=== PATIENT | female | born 1940 | race Two or more races ===

== ENCOUNTER 2022-05-13 15:51 | Inpatient (IN) | payer OTHER ==
[~2022-05-13] VITALS: Ht 167.6 cm; Wt 61.2 kg
[~2022-05-13 15:51] MED LIST: ALPRAZOLAM0.25 MG; ATORVASTATIN CA10 MG PO; ATORVASTATIN CA20 MG; B-121000 MC1; FAMOTIDINE20 MG; GABAPENTIN600 MG; LANSOPRAZOLE30 MG NGT; LEVOTHYROXINE25 MC1; LEVOTHYROXINE25 MC1 PO; LISINOPRIL-HCT1 EAC1; LISINOPRIL20 MG; PROTEINEX-18 LI30 ML NGT; TAMSULOSIN HCL0.4 MG; TOPROL XL25 M1 PO; VENLAFAXINE HCL75 M1; VIRT-CAPS SOFTGE1 MG; VIRT-CAPS SOFTGE1 MG PO; VITAMIN D3125 MCG; XOPENEX0.63 MG/3 IH
--- NOTE | 2022-05-13 15:56 | NUR ---
SE RECIBE A PTE POR AMBULANCIA ALERTA Y ACTIVA EN COMPANIA DE [facility]. LA [facility]IJ[place] REFIERE QUE PTE A PRESENTADO SANGRADO RECTAL DESDE REDD.
[2022-05-15] MEDS ORDERED: LEVOTHYROXINE25 MC1 PO (12:42)
[2022-05-15] MEDS ORDERED: ATORVASTATIN CA10 MG PO (12:42)
[2022-05-15] MEDS ORDERED: INTESTINEX680 M1 PO (12:42)
[2022-05-15] MEDS ORDERED: TOPROL XL25 M1 PO (12:42)
[2022-05-15] MEDS ORDERED: METRONIDAZOLE500 MG PO (12:42)
[2022-05-15] MEDS ORDERED: FAMOTIDINE20 MG PO (12:42)
[2022-05-15] MEDS ORDERED: CIPRO500 MG PO (12:42)
[2022-05-15] MEDS ORDERED: MIRALAX17 GM PO (12:42)
== END 2022-05-15 13:13 | disposition home or self-care (01) | DRG 392 ==
LOC: ER 15:51 → SEC-K 21:59 → MEDI 05-14 12:36 → SEC-K 05-14 14:37
PROVIDERS: ADMIT Internal Medicine Geriatric Medicine; ATTEND Internal Medicine Geriatric Medicine
PROC: BW21Y0Z Computerized Tomography (CT Scan) of Abdomen and Pelvis using Other Contrast, Unenhanced and Enhanced (ICD-10-PCS; principal; 2022-05-13)
PROC: 3E0336Z Introduction of Nutritional Substance into Peripheral Vein, Percutaneous Approach (ICD-10-PCS; 2022-05-13)
DX: K59.00 Constipation, unspecified (principal); G93.1 Anoxic brain damage, not elsewhere classified; N39.0 Urinary tract infection, site not specified; K62.5 Hemorrhage of anus and rectum; K62.89 Other specified diseases of anus and rectum; B96.29 Other Escherichia coli [E. coli] as the cause of diseases classified elsewhere; I10 Essential (primary) hypertension

== ENCOUNTER 2023-06-21 02:34 | Inpatient (IN) | payer OTHER ==
[~2023-06-21] VITALS: Ht 231.1 cm; Wt 81.6 kg
[~2023-06-21 02:34] MED LIST changes: +CIPRO500 MG PO; +FAMOTIDINE20 MG PO; +INTESTINEX680 M1 PO; +METRONIDAZOLE500 MG PO; +MIRALAX17 GM PO
[2023-06-21 03:56] LABS: HEMATOCRIT 41.3 % (36.0-45.00); MEAN CELL VOLUME 94.7 fL (80.00-100.00); MEAN CORPUSCULAR HEMOGLOBIN 32.2 pg (27.00-32.0); MEAN CORPUSCULAR HGB CONC 33.9 g/dl (32.0-36.0); PLATELET COUNT 198 K/uL (150-450); RED BLOOD COUNT 4.36 M/uL (4.00-6.00); RED CELL DISTRIBUTION WIDTH 13.3 % (11.5-14.5)
[2023-06-21 04:17] LABS: ALBUMIN 3.5 gm/dL (3.4-5.0); BILIRUBIN TOTAL 0.35 mg/dL (0.3-1.2); CALCIUM 9.6 mg/dL (8.5-10.1); CREATININE SERUM 1.02 mg/dL (0.55-1.02); GFR 51.88; GLOBULINA 3.6 G/DL (2.4-3.5); POTASSIUM 5.16 mEq/L (3.5-5.1); TOTAL PROTEIN 7.1 gm/dL (6.4-8.2)
[2023-06-21 07:41] LABS: ABG PH 7.336 (7.35-7.45); ABG PO2 64.2 mmHg (80-100); BASE EXCESS -2.1 mmol/l; BICARBONATE 24.1 mmol/l (23-25); SaO2 90.4 %; Tco2 25.5 mmol/l; allen test SATISFACTORY; o2 21 %; puncture site RADIAL RIGHT
[2023-06-21 08:06] LABS: URINE APPEARANCE Turbid; URINE BILIRRUBIN Negative (NEGATIVE); URINE BLOOD Large; URINE COLOR Yellow; URINE GLUCOSE Negative (NEGATIVE); URINE LEUKOCYTE Large; URINE NITRATE Negative; URINE PROTEIN 30 (NEGATIVE); URINE UROBILINOGEN 0.2 E.U./dl
[2023-06-21 08:10] LABS: URINE WBC 976.9 uL (0.0-23.2)
[2023-06-21 09:19] LABS: URINE BACTERIA > 9821.5 uL (0.0-1933)
[2023-06-21 09:20] LABS: URINE CRYSTALS MODERATE /HPF
[2023-06-21 14:34] LABS: ABG PH 7.437 (7.35-7.45); ABG PO2 70.5 mmHg (80-100); ABG pCO2 40.3 mmHg (35-45); BASE EXCESS 2.3 mmol/l; BICARBONATE 26.6 mmol/l (23-25); SaO2 94.6 %; Tco2 27.8 mmol/l
[2023-06-21 14:35] LABS: allen test SATISFACTORY; o2 28 %; puncture site RADIAL RIGHT
[2023-06-22 16:28] LABS: PH,URINE 5.5 (5.0-8.0); URINE APPEARANCE Turbid; URINE BILIRRUBIN Negative (NEGATIVE); URINE BLOOD Large; URINE COLOR Dark Yellow; URINE GLUCOSE Negative (NEGATIVE); URINE LEUKOCYTE Moderate; URINE NITRATE Negative
[2023-06-22 16:30] LABS: URINE EPITHELIAL CELLS 49.3 uL (0.0-38.8); URINE RBC 718.4 uL (0.0-20.8)
[2023-06-22 16:50] LABS: URINE BACTERIA > 9821.5 uL (0.0-1933); URINE PROTEIN 300 (NEGATIVE)
[2023-06-23 04:58] LABS: HEMATOCRIT 33.3 % (36.0-45.00); HEMOGLOBIN 11.6 g/dL (12.0-15.00); MEAN CORPUSCULAR HEMOGLOBIN 32.4 pg (27.00-32.0); MEAN CORPUSCULAR HGB CONC 34.8 g/dl (32.0-36.0); PLATELET COUNT 132 K/uL (150-450); RED BLOOD COUNT 3.59 M/uL (4.00-6.00); RED CELL DISTRIBUTION WIDTH 13.4 % (11.5-14.5)
[2023-06-23 05:32] LABS: ALBUMIN 2.7 gm/dL (3.4-5.0); BILIRUBIN TOTAL 0.42 mg/dL (0.3-1.2); CALCIUM 8.7 mg/dL (8.5-10.1); CREATININE SERUM 0.62 mg/dL (0.55-1.02); GFR 92.15; GLOBULINA 3.7 G/DL (2.4-3.5); POTASSIUM 3.84 mEq/L (3.5-5.1); TOTAL PROTEIN 6.4 gm/dL (6.4-8.2)
[2023-06-24 08:01] LABS: ABG PH 7.479 (7.35-7.45); ABG pCO2 40.1 mmHg (35-45)
[2023-06-24 08:02] LABS: ABG PO2 53.3 mmHg (80-100); BASE EXCESS 5.2 mmol/l; BICARBONATE 29.1 mmol/l (23-25); SaO2 90.2 %; Tco2 30.4 mmol/l; allen test SATISFACTORY; o2 21 %; puncture site RADIAL RIGHT
[2023-06-24 15:59] LABS: FERRITIN 693.1 NG/ML (8-252)
[2023-06-25 06:43] LABS: HEMATOCRIT 34.8 % (36.0-45.00); HEMOGLOBIN 12.1 g/dL (12.0-15.00); MEAN CELL VOLUME 93.4 fL (80.00-100.00); MEAN CORPUSCULAR HEMOGLOBIN 32.4 pg (27.00-32.0); MEAN CORPUSCULAR HGB CONC 34.7 g/dl (32.0-36.0); PLATELET COUNT 158 K/uL (150-450); RED BLOOD COUNT 3.72 M/uL (4.00-6.00)
[2023-06-25 07:17] LABS: ALBUMIN 2.6 gm/dL (3.4-5.0); BILIRUBIN TOTAL 0.8 mg/dL (0.3-1.2); CALCIUM 8.3 mg/dL (8.5-10.1); CREATININE SERUM 0.56 mg/dL (0.55-1.02); GFR 103.64; GLOBULINA 3.1 G/DL (2.4-3.5); POTASSIUM 3.94 mEq/L (3.5-5.1); TOTAL PROTEIN 5.7 gm/dL (6.4-8.2)
[2023-06-25 11:02] LABS: ABG PH 7.527 (7.35-7.45); BASE EXCESS 6.4 mmol/l
[2023-06-25 11:03] LABS: BICARBONATE 29.2 mmol/l (23-25); Tco2 30.3 mmol/l; allen test SATISFACTORY; o2 21 %; puncture site RADIAL LEFT
[2023-06-25 11:04] LABS: ABG PO2 53.4 mmHg (80-100); SaO2 91.6 %
[2023-06-25 13:46] LABS: PH,URINE 5.5 (5.0-8.0); URINE APPEARANCE Clear; URINE BILIRRUBIN Negative (NEGATIVE); URINE BLOOD Moderate; URINE COLOR Yellow; URINE GLUCOSE Negative (NEGATIVE); URINE LEUKOCYTE Negative; URINE NITRATE Negative; URINE PROTEIN 30 (NEGATIVE); URINE UROBILINOGEN 0.2 E.U./dl
[2023-06-25 13:50] LABS: URINE BACTERIA 12.5 uL (0.0-1933); URINE RBC 96.7 uL (0.0-20.8)
== END 2023-06-28 13:29 | disposition home or self-care (01) | DRG 177 ==
LOC: ER 02:34 → ICU-2 13:06 → SEC-K 06-22 23:03 → MEDJ 06-23 17:12
PROVIDERS: General Practice; Internal Medicine; Internal Medicine Infectious Disease; ADMIT Internal Medicine; ATTEND Internal Medicine
PROC: 8E0ZXY6 Isolation (ICD-10-PCS; principal; 2023-06-21)
PROC: XW033E5 Introduction of Remdesivir Anti-infective into Peripheral Vein, Percutaneous Approach, New Technology Group 5 (ICD-10-PCS; 2023-06-21)
PROC: B020ZZZ Computerized Tomography (CT Scan) of Brain (ICD-10-PCS; 2023-06-21)
PROC: B246ZZZ Ultrasonography of Right and Left Heart (ICD-10-PCS; 2023-06-21)
PROC: 4A12X4Z Monitoring of Cardiac Electrical Activity, External Approach (ICD-10-PCS; 2023-06-21)
PROC: 02HV33Z Insertion of Infusion Device into Superior Vena Cava, Percutaneous Approach (ICD-10-PCS; 2023-06-22)
PROC: BB24YZZ Computerized Tomography (CT Scan) of Bilateral Lungs using Other Contrast (ICD-10-PCS; 2023-06-25)
PROC: BW21YZZ Computerized Tomography (CT Scan) of Abdomen and Pelvis using Other Contrast (ICD-10-PCS; 2023-06-27)
DX: U07.1 COVID-19 (principal); I21.A1 Myocardial infarction type 2; N39.0 Urinary tract infection, site not specified; K66.8 Other specified disorders of peritoneum; I10 Essential (primary) hypertension; E86.9 Volume depletion, unspecified; F03.90 Unspecified dementia, unspecified severity, without behavioral disturbance, psychotic disturbance, mood disturbance, and anxiety; B96.20 Unspecified Escherichia coli [E. coli] as the cause of diseases classified elsewhere; E03.9 Hypothyroidism, unspecified; Z74.01 Bed confinement status

== ENCOUNTER 2024-06-25 14:44 | Inpatient (IN) | payer OTHER ==
[~2024-06-25] VITALS: Ht 152.4 cm; Wt 56.7 kg
[2024-06-25] MEDS ORDERED: ARICEPT5 MG (14:51)
[2024-06-25] MEDS ORDERED: ASPIRIN81 MG (14:51)
[2024-06-25] MEDS ORDERED: FOLIC ACID20 MG (14:51)
[2024-06-25] MEDS ORDERED: COZAAR25 MG (14:51)
[2024-06-25] MEDS ORDERED: IRON325 MG (14:51)
[2024-06-25] MEDS ORDERED: TRAZODONE HCL50 MG (14:52)
[2024-06-25] MEDS ORDERED: ISOSORBIDE DINIT5 MG (14:53)
[2024-06-25] MEDS ORDERED: NOREPINEPHRINE BITARTRATE 1 MG/ML AMPUL IV ONE (15:00)
[2024-06-25] MEDS ORDERED: 0.9 % SODIUM CHLORIDE 1,000 ML IV ONE (15:00)
[2024-06-25] MEDS ORDERED: PIPERACILLIN/TAZOBACTAM SODIUM 2.25 GM VIAL IV ONE (15:00)
[2024-06-25 15:13] LABS: HEMATOCRIT 39.6 % (36.0-45.00); HEMOGLOBIN 13.3 g/dL (12.0-15.00); MEAN CORPUSCULAR HEMOGLOBIN 31.3 pg (27.00-32.0); MEAN CORPUSCULAR HGB CONC 33.7 g/dl (32.0-36.0); PLATELET COUNT 170 K/uL (150-450); RED BLOOD COUNT 4.26 M/uL (4.00-6.00); RED CELL DISTRIBUTION WIDTH 15.1 % (11.5-14.5)
[2024-06-25 16:04] LABS: ALBUMIN 2.6 gm/dL (3.4-5.0); BILIRUBIN TOTAL 3.61 mg/dL (0.3-1.2); CREATININE SERUM 1.8 mg/dL (0.55-1.02); GFR 26.87; GLOBULINA 3.6 G/DL (2.4-3.5); POTASSIUM 3.98 mEq/L (3.5-5.1); TOTAL PROTEIN 6.2 gm/dL (6.4-8.2)
[2024-06-25 18:10] LABS: PH,URINE 5.5 (5.0-8.0); URINE APPEARANCE Turbid; URINE BILIRRUBIN Moderate (NEGATIVE); URINE BLOOD Large; URINE COLOR Dark Yellow; URINE GLUCOSE Negative (NEGATIVE); URINE KETONE Trace (NEGATIVE); URINE LEUKOCYTE Large; URINE NITRATE Negative
[2024-06-25 18:14] LABS: URINE CAST 15.61 uL (0.0-1.40); URINE EPITHELIAL CELLS 95.6 uL (0.0-38.8); URINE WBC 1654.5 uL (0.0-23.2)
[2024-06-25 18:35] LABS: URINE BACTERIA > 9821.5 uL (0.0-1933); URINE PROTEIN 100 (NEGATIVE)
[2024-06-25 18:37] LABS: URINE CRYSTALS MODERATE /HPF
[2024-06-25] MEDS ORDERED: ACETAMINOPHEN 325 MG TABLET PO PRN (21:00)
[2024-06-25] MEDS ORDERED: PIPERACILLIN/TAZOBACTAM SODIUM 3.375 GM in 0.9 % SODIUM CHLORIDE 100 ML IV SCH (21:00)
[2024-06-25] MEDS ORDERED: FAMOTIDINE/PF 20 MG in 0.9 % SODIUM CHLORIDE 100 ML IV SCH (21:09)
[2024-06-25] MEDS ORDERED: 0.9 % SODIUM CHLORIDE 1,000 ML IV SCH (21:15)
[2024-06-25] MEDS ORDERED: NOREPINEPHRINE BITARTRATE 1 MG/ML AMPUL IV SCH (21:30)
[2024-06-25 21:35] VITALS: BP 119/52; O2SAT 100
[2024-06-25 21:40] VITALS: BP 119/52
[2024-06-25 21:51] LABS: INR 1.2; PARTIAL THROMBOPLASTIN TIME 28.8 SECONDS (22.0-34.0); PROTHROMBIN TIME 12.9 SECONDS (9.0-11.5)
[2024-06-25 21:59] LABS: ALBUMIN 2.2 gm/dL (3.4-5.0); BILIRUBIN TOTAL 3.36 mg/dL (0.3-1.2); BILIRUBIN,CONJUGATED 2.9 mg/dL (0.0-0.2); BILIRUBIN,UNCONJUGATED 0.46 mg/dL (0.0-0.6); CALCIUM 8.4 mg/dL (8.5-10.1); CREATININE SERUM 1.65 mg/dL (0.55-1.02); GFR 29.71; PHOSPHOROUS 2.5 mg/dL (2.5-4.9); POTASSIUM 3.74 mEq/L (3.5-5.1); TOTAL PROTEIN 6.1 gm/dL (6.4-8.2)
[2024-06-25 22:00] LABS: C-REACTIVE PROTEIN 15.2 MG/DL (0.00-0.29)
[2024-06-25 22:49] LABS: ABG PH 7.427 (7.35-7.45); ABG PO2 67.4 mmHg (80-100); ABG pCO2 30.5 mmHg (35-45); BASE EXCESS -3.5 mmol/l; BICARBONATE 19.6 mmol/l (23-25); SaO2 93.5 %; Tco2 20.6 mmol/l; allen test SATISFACTORY; o2 21 %; puncture site RADIAL LEFT
[2024-06-26] VITALS (14 sets, daily range): BP systolic 86–151; BP diastolic 58–85; O2SAT 96–100
[2024-06-26] MEDS ORDERED: LEVOTHYROXINE SODIUM 25 MCG TABLET PO SCH (06:00)
[2024-06-26] MEDS ORDERED: NOREPINEPHRINE BITARTRATE 8 MG in DEXTROSE 5 % IN WATER 250 ML IV SCH (08:15)
[2024-06-26 14:45] LABS: ALBUMIN 2.2 gm/dL (3.4-5.0); BILIRUBIN TOTAL 2.34 mg/dL (0.3-1.2); BILIRUBIN,CONJUGATED 2.02 mg/dL (0.0-0.2); BILIRUBIN,UNCONJUGATED 0.32 mg/dL (0.0-0.6); TOTAL PROTEIN 5.8 gm/dL (6.4-8.2)
[2024-06-26] MEDS ORDERED: ENOXAPARIN SODIUM 30 MG/0.3 ML SYRINGE SUBCUTANEO SCH (17:00)
[2024-06-26] MEDS ORDERED: MEROPENEM 500 MG/VIAL VIAL IV SCH (17:01)
[2024-06-27] VITALS (9 sets, daily range): BP systolic 109–160; BP diastolic 69–85; O2SAT 96–100
[2024-06-27 06:55] LABS: HEMATOCRIT 33.6 % (36.0-45.00); HEMOGLOBIN 11.6 g/dL (12.0-15.00); MEAN CELL VOLUME 90.4 fL (80.00-100.00); MEAN CORPUSCULAR HEMOGLOBIN 31.1 pg (27.00-32.0); MEAN CORPUSCULAR HGB CONC 34.4 g/dl (32.0-36.0); PLATELET COUNT 166 K/uL (150-450); RED BLOOD COUNT 3.71 M/uL (4.00-6.00); RED CELL DISTRIBUTION WIDTH 14.8 % (11.5-14.5)
[2024-06-27 08:28] LABS: BILIRUBIN TOTAL 1.26 mg/dL (0.3-1.2); CALCIUM 8.6 mg/dL (8.5-10.1); CREATININE SERUM 0.72 mg/dL (0.55-1.02); GFR 77.36; GLOBULINA 3.4 G/DL (2.4-3.5); POTASSIUM 4.05 mEq/L (3.5-5.1); TOTAL PROTEIN 5.4 gm/dL (6.4-8.2)
[2024-06-27] MEDS ORDERED: PANTOPRAZOLE SODIUM 40 MG/VIAL VIAL IV PUSH SCH (09:37)
[2024-06-27] MEDS ORDERED: SODIUM CHLORIDE 0.45 % 1,000 ML IV SCH (09:45)
[2024-06-27] MEDS ORDERED: MEROPENEM 500 MG/VIAL VIAL IV SCH (18:00)
[2024-06-28] VITALS (8 sets, daily range): BP systolic 136–170; BP diastolic 77–92; O2SAT 98–99
[2024-06-28 07:52] LABS: HEMATOCRIT 35.9 % (36.0-45.00); HEMOGLOBIN 12.3 g/dL (12.0-15.00); MEAN CELL VOLUME 91.6 fL (80.00-100.00); MEAN CORPUSCULAR HEMOGLOBIN 31.4 pg (27.00-32.0); MEAN CORPUSCULAR HGB CONC 34.3 g/dl (32.0-36.0); PLATELET COUNT 163 K/uL (150-450); RED BLOOD COUNT 3.92 M/uL (4.00-6.00); RED CELL DISTRIBUTION WIDTH 14.3 % (11.5-14.5)
[2024-06-28 07:54] LABS: URINE APPEARANCE Clear; URINE BILIRRUBIN Negative (NEGATIVE); URINE BLOOD Moderate; URINE COLOR Yellow; URINE GLUCOSE Negative (NEGATIVE); URINE KETONE Trace (NEGATIVE); URINE LEUKOCYTE Negative; URINE NITRATE Negative; URINE PROTEIN Negative (NEGATIVE)
[2024-06-28 07:55] LABS: URINE BACTERIA 23.2 uL (0.0-1933); URINE EPITHELIAL CELLS 4.7 uL (0.0-38.8); URINE RBC 198.4 uL (0.0-20.8); URINE WBC 19.7 uL (0.0-23.2)
[2024-06-28 08:20] LABS: ALBUMIN 2.2 gm/dL (3.4-5.0); BILIRUBIN TOTAL 1.28 mg/dL (0.3-1.2); CALCIUM 8.7 mg/dL (8.5-10.1); CREATININE SERUM 0.41 mg/dL (0.55-1.02); GFR 148.15; GLOBULINA 3.6 G/DL (2.4-3.5); POTASSIUM 3.61 mEq/L (3.5-5.1); TOTAL PROTEIN 5.8 gm/dL (6.4-8.2)
[2024-06-28 08:22] LABS: URINE CAST 0.88 uL (0.0-1.40)
[2024-06-29] VITALS (8 sets, daily range): BP systolic 112–152; BP diastolic 70–92; O2SAT 96–99
[2024-06-29] MEDS ORDERED: CEFTRIAXONE SODIUM 2,000 MG VIAL IV SCH (09:00)
[2024-06-30 00:23] VITALS: O2SAT 98
[2024-06-30 01:04] VITALS: BP 131/74; O2SAT 99
[2024-06-30 03:23] VITALS: O2SAT 98
[2024-06-30] MEDS ORDERED: LEVOTHYROXINE SODIUM 50 MCG TABLET PO SCH (06:00)
[2024-06-30 06:01] LABS: BILIRUBIN TOTAL 1.31 mg/dL (0.3-1.2); CREATININE SERUM 0.5 mg/dL (0.55-1.02); GFR 117.83; GLOBULINA 3.7 G/DL (2.4-3.5); MAGNESIUM 1.8 mg/dL (1.8-2.4); PHOSPHOROUS 2.9 mg/dL (2.5-4.9); POTASSIUM 5.12 mEq/L (3.5-5.1); TOTAL PROTEIN 5.7 gm/dL (6.4-8.2)
[2024-06-30 06:16] LABS: HEMOGLOBIN 12.3 g/dL (12.0-15.00); MEAN CELL VOLUME 92.4 fL (80.00-100.00); MEAN CORPUSCULAR HEMOGLOBIN 32.5 pg (27.00-32.0); MEAN CORPUSCULAR HGB CONC 35.2 g/dl (32.0-36.0); PLATELET COUNT 166 K/uL (150-450); RED BLOOD COUNT 3.79 M/uL (4.00-6.00); RED CELL DISTRIBUTION WIDTH 14.2 % (11.5-14.5)
[2024-06-30 06:30] LABS: C-REACTIVE PROTEIN 6.42 MG/DL (0.00-0.29)
[2024-06-30 09:17] VITALS: BP 158/86; O2SAT 98
[2024-06-30 09:42] VITALS: O2SAT 98
[2024-06-30] MEDS ORDERED: ARICEPT5 MG PO (12:56)
[2024-06-30] MEDS ORDERED: IRON325 MG PO (12:56)
[2024-06-30] MEDS ORDERED: LEVOTHYROXINE50 MCG PO (12:57)
[2024-06-30 14:16] VITALS: O2SAT 98
== END 2024-06-30 16:48 | disposition home or self-care (01) | DRG 871 ==
LOC: ER 14:44 → MEDJ 21:29
PROVIDERS: General Practice; Internal Medicine Infectious Disease; ADMIT Internal Medicine; ATTEND Internal Medicine
PROC: BW21ZZZ Computerized Tomography (CT Scan) of Abdomen and Pelvis (ICD-10-PCS; principal; 2024-06-25)
PROC: BW40ZZZ Ultrasonography of Abdomen (ICD-10-PCS; 2024-06-25)
PROC: 4A12X4Z Monitoring of Cardiac Electrical Activity, External Approach (ICD-10-PCS; 2024-06-26)
DX: A41.9 Sepsis, unspecified organism (principal); R65.21 Severe sepsis with septic shock; N39.0 Urinary tract infection, site not specified; N17.9 Acute kidney failure, unspecified; I13.0 Hypertensive heart and chronic kidney disease with heart failure and stage 1 through stage 4 chronic kidney disease, or unspecified chronic kidney disease; I50.9 Heart failure, unspecified; E86.0 Dehydration; N18.9 Chronic kidney disease, unspecified; E80.6 Other disorders of bilirubin metabolism; K80.20 Calculus of gallbladder without cholecystitis without obstruction; E78.5 Hyperlipidemia, unspecified; G30.1 Alzheimer's disease with late onset; F02.80 Dementia in other diseases classified elsewhere, unspecified severity, without behavioral disturbance, psychotic disturbance, mood disturbance, and anxiety; E03.9 Hypothyroidism, unspecified